=== PATIENT | female | born 1940 | race Caucasian/White ===

== ENCOUNTER 2018-01-31 16:41 | Emergency (ER) | payer OTHER, MEDICARE ==
[~2018-01-31] VITALS: Ht 157.5 cm; Wt 65.8 kg
[~2018-01-31 16:41] MED LIST: ACIPHEX 20 MG T20 MG; ADULT LOW DOSE81 MG PO; ALBUTEROL INH; ALENDRONATE; ATIVAN1 MG PO; CELEXA40 MG PO; CRESTOR20 MG; ESTRACE0.5 MG; HCTZ PO; IBUPROFEN 200200 M1 PO; NASONEX17 GM NS; NORCO 5-325 TA1 EACH PO; PROTONIX40 M2 PO; QUINAPRIL 20 MG20 MG PO; SYMBICORT80 MCG/4.1; SYNTHROID50 MCG PO; ZOCOR 20 MG TAB20 M1 PO
[2018-01-31] MEDS ORDERED: HYDROCODONE-AP1 EAC6 PO (19:03)
[2018-01-31 19:43] VITALS: BP 139/77
== END 2018-01-31 20:25 | disposition home or self-care (01) ==
LOC: ER 16:41
DX: S83.91XA Sprain of unspecified site of right knee, initial encounter (principal); K86.1 Other chronic pancreatitis; K21.9 Gastro-esophageal reflux disease without esophagitis; I10 Essential (primary) hypertension; Z90.710 Acquired absence of both cervix and uterus; Z88.6 Allergy status to analgesic agent; Z91.010 Allergy to peanuts; Z88.0 Allergy status to penicillin; Z91.018 Allergy to other foods; W22.8XXA Striking against or struck by other objects, initial encounter; Y93.89 Activity, other specified; Y92.89 Other specified places as the place of occurrence of the external cause; Y99.8 Other external cause status

== ENCOUNTER → 2018-02-12 | Outpatient (CLI) | payer OTHER, MEDICARE ==
[~2018-02-12] MED LIST changes: +HYDROCODONE-AP1 EAC6 PO
== END ==
LOC: MRI 14:39
DX: S83.281A Other tear of lateral meniscus, current injury, right knee, initial encounter (principal); M25.461 Effusion, right knee; I10 Essential (primary) hypertension; X58.XXXA Exposure to other specified factors, initial encounter; Y93.89 Activity, other specified; Y92.89 Other specified places as the place of occurrence of the external cause; Y99.8 Other external cause status